=== PATIENT | male | born 1965 | race Asian ===

== ENCOUNTER 2019-10-02 21:24 | Emergency (ER) | payer SELFPAY ==
[~2019-10-02] VITALS: Ht 170.2 cm; Wt 72.1 kg
[2019-10-02 21:31] VITALS: Ht 170.2 cm; Wt 72.1 kg
[2019-10-03 02:12] VITALS: BP 145/80
== END 2019-10-03 00:40 | disposition home or self-care (01) ==
LOC: ED 21:24
DX: L02.11 Cutaneous abscess of neck (principal); E11.9 Type 2 diabetes mellitus without complications; I10 Essential (primary) hypertension; E78.00 Pure hypercholesterolemia, unspecified
CPT/HCPCS: 82962; J0295